=== PATIENT | male | born 1960 | race African-American/Black ===

== ENCOUNTER 2017-11-02 07:34 | Emergency (ER) | payer MEDICAID ==
[~2017-11-02] VITALS: Ht 180.3 cm; Wt 103.0 kg
[2017-11-02] MEDS ORDERED: KETOROLAC 60MG/2ML VIAL IM ONE (10:30)
[2017-11-02 10:32] VITALS: BP 157/100
== END 2017-11-02 10:41 | disposition home or self-care (01) ==
LOC: ER 08:59
DX: M54.12 Radiculopathy, cervical region (principal); I10 Essential (primary) hypertension
CPT/HCPCS: 96372; 99283; J1885

== ENCOUNTER 2017-12-18 04:49 | Emergency (ER) | payer MEDICAID ==
[~2017-12-18] VITALS: Ht 180.3 cm; Wt 102.0 kg
[2017-12-18] MEDS ORDERED: BACITRACIN ZINC OINT UDPKT TOP ONE (08:15)
[2017-12-18] MEDS ORDERED: LIDOCAINE HCL 1% 20ML VIAL (Pyxis) INJ MC ONE (08:15)
[2017-12-18] MEDS ORDERED: IBUPROFEN 600MG TABLET PO ONE (08:15)
[2017-12-18 11:20] VITALS: BP 145/88
== END 2017-12-18 11:30 | disposition home or self-care (01) ==
LOC: ER 04:49
DX: L02.01 Cutaneous abscess of face (principal); R11.2 Nausea with vomiting, unspecified; R50.9 Fever, unspecified; R10.9 Unspecified abdominal pain
CPT/HCPCS: 10060; 99283; J3490; Z7610